=== PATIENT | female | born 1940 ===

== ENCOUNTER 2019-01-30 21:24 | Emergency (ER) | payer OTHER, MEDICARE ==
[2019-01-30 21:30] VITALS: TEMP 97.2
[2019-01-30] MEDS ORDERED: HYDRALAZINE HYDROCHLORIDE 20 MG/ML SOL IV SCH ×2 (21:45→23:15)
[2019-01-30] MEDS ORDERED: HYDRALAZINE HYDROCHLORIDE 20 MG/ML SOL ONE ×2 (22:04→23:38)
[2019-01-30 22:06] LABS: BASOPHILS % (AUTO) 1 % (0-3); EOSINOPHILS % (AUTO) 4 % (0-9); HEMATOCRIT 33 % (35-47); HEMOGLOBIN 10.8 gm/dl (12.0-15.5); LYMPHOCYTES % (AUTO) 30.3 % (10-50); MEAN CORPUSCULAR HGB CONC 33.4 gm/dl (32.0-36.0); MEAN CORPUSCULAR VOLUME 90 fL (81-99); MONOCYTES % (AUTO) 9.8 % (0-12); NEUTROPHILS % (AUTO) 54.8 % (37-80)
[2019-01-30 22:22] LABS: ALBUMIN 2.5 gm/dl (3.4-5.0); BILIRUBIN,TOTAL 0.2 mg/dl (0.2-1.0); CALCIUM 8.6 mg/dl (8.5-10.1); CARBON DIOXIDE 25.1 mEq/L (21-32); CREATININE 0.86 mg/dl (0.60-1.00); POTASSIUM 3.6 mMol/L (3.5-5.1); TOTAL PROTEIN 6.4 gm/dl (6.4-8.2); TROP I 0.11 ng/ml (0.000-0.056)
[2019-01-30] MEDS ORDERED: ASPIRIN 81 MG CHEWABLE CTB PO ONE (23:09)
[2019-01-30] MEDS ORDERED: METOPROLOL TARTRATE 5 MG/5 ML SOL IV ONE ×2 (23:10→23:37)
[2019-01-30] MEDS ORDERED: ASPIRIN 81 MG CHEWABLE CTB ONE (23:37)
[2019-01-31 00:41] VITALS: O2SAT 98
[2019-01-31 00:45] VITALS: RESP 18
[2019-01-31 02:39] VITALS: BP 148/80; PULSE 88
== END 2019-01-31 02:14 | disposition short-term general hospital (02) | DRG 948 ==
LOC: ED 21:24
DX: R79.89 Other specified abnormal findings of blood chemistry (principal); I10 Essential (primary) hypertension; R42 Dizziness and giddiness; E03.9 Hypothyroidism, unspecified
CPT/HCPCS: 36415; 71046; 80053; 83880; 84484; 85025; 93005; 96374; 96375; 99284; 99285; J0360; J3490

== ENCOUNTER 2019-02-11 10:18 | Emergency (ER) | payer OTHER, MEDICARE ==
[2019-02-11 10:32] VITALS: TEMP 97.1
[2019-02-11 11:05] VITALS: RESP 16
[2019-02-11 11:29] LABS: BASOPHILS % (AUTO) 1 % (0-3); EOSINOPHILS % (AUTO) 4 % (0-9); HEMATOCRIT 32 % (35-47); HEMOGLOBIN 10.9 gm/dl (12.0-15.5); LYMPHOCYTES % (AUTO) 23.1 % (10-50); MEAN CORPUSCULAR HEMOGLOBIN 30.5 pg (27.0-32.0); MEAN CORPUSCULAR VOLUME 90 fL (81-99); MONOCYTES % (AUTO) 9.2 % (0-12)
[2019-02-11 11:44] LABS: APPEARANCE,URINE Slightly Cloudy; BILIRUBIN,URINE NEGATIVE (NEGATIVE); COLOR,URINE Yellow; GLUCOSE, URINE (UA) NEGATIVE (NEGATIVE); KETONES,URINE NEGATIVE (NEGATIVE); LEUKOCYTE ESTERASE ,URINE NEGATIVE (NEGATIVE); NITRATE,URINE NEGATIVE (NEGATIVE); OCCULT BLOOD,URINE TRACE LYSED (NEG-TRACE); PH,URINE 5.5; UROBILINOGEN,URINE 0.2 (0.2-1.0 EU)
[2019-02-11 11:46] LABS: ALBUMIN 2.7 gm/dl (3.4-5.0); BILIRUBIN,TOTAL 0.4 mg/dl (0.2-1.0); CALCIUM 8.2 mg/dl (8.5-10.1); POTASSIUM 4.2 mMol/L (3.5-5.1); TOTAL PROTEIN 6.7 gm/dl (6.4-8.2); TROP I 0.086 ng/ml (0.000-0.056)
[2019-02-11 11:48] LABS: BACTERIA NEGATIVE (< 1+); CRYSTALS NEGATIVE (0-3 AVE/HPF); RBC,URINE 0-2 (0-3AV/HPF); WBC,URINE 0-3 (0-5AV/HPF)
[2019-02-11 11:52] LABS: CARBON DIOXIDE 24.5 mEq/L (21-32)
[2019-02-11 12:35] VITALS: O2SAT 98
[2019-02-11 13:19] VITALS: BP 164/84; PULSE 64
== END 2019-02-11 13:15 | disposition home or self-care (01) | DRG 305 ==
LOC: SUPCPDRO 10:18 → ED 10:18
DX: I10 Essential (primary) hypertension (principal); R42 Dizziness and giddiness
CPT/HCPCS: 36415; 80053; 81001; 83735; 84484; 85025; 93005; 99283